=== PATIENT | female | born 1990 | race American Indian/Alaskan Native ===

== ENCOUNTER 2016-12-11 08:36 | Emergency (ER) | payer MEDICAID, OTHER ==
--- NOTE | 2016-12-11 09:01 | C.PDOC ---
History Of Present Illness <Arsen Wells - Last Filed: 12/11/16 08:59> <Prakash Ibarra - Last Filed: 12/11/16 13:11> This chart was written by Prakash Ibarra mistakenly within a chart that was begun by Dr. Arsen Wells who was not the provider for this patient. 26 y/o F p/w "knot" in epigastrium x 6 years, now with sharp pain and not going away since yesterday. Denies fever, nausea, vomiting, diarrhea. History of C section, no other abdominal surgeries. (Prakash Ibarra) <Arsen Wells - Last Filed: 12/11/16 08:59> <Prakash Ibarra - Last Filed: 12/11/16 13:11> Time Seen by Provider: 12/11/16 08:58 Chief Complaint (Nursing): Abdominal Pain Past Medical History - Social History Hx Tobacco Use: Yes Hx Alcohol Use: No Hx Substance Use: No - Immunization History Hx Influenza Vaccination: Yes (got sick last yr) <Arsen Wells - Last Filed: 12/11/16 08:59> Family History: States: No Known Family Hx <Prakash Ibarra - Last Filed: 12/11/16 13:11> Vital Signs: Last Vital Signs Temp 98.8 F 12/11/16 08:42 Pulse 79 12/11/16 11:14 Resp 16 12/11/16 11:14 BP 139/78 12/11/16 11:14 Pulse Ox 99 12/11/16 11:14 Review Of Systems Except As Marked, All Systems Reviewed And Found Negative. Constitutional: Negative for: Fever Cardiovascular: Negative for: Chest Pain <Prakash Ibarra - Last Filed: 12/11/16 13:11> Physical Exam <Arsen Wells - Last Filed: 12/11/16 08:59> <Prakash Ibarra - Last Filed: 12/11/16 13:11> - Physical Exam Additional Physical Exam Comments: Constitutional: No acute distress. Head: Normocephalic. Atraumatic. Neck: Supple. Cardiovascular: Regular rate. Radial pulse 2+ bilaterally. Chest: No tenderness. Respiratory: Clear to auscultation bilaterally. GI: Soft. Soft mass in epigastrium, irreducible. Nondistended. Back: No CVA tenderness. Musculoskeletal: No tenderness or swelling of extremities. Skin: No rash. Neurologic: Alert, no focal deficit. (Prakash Ibarra) ED Course And Treatment O2 Sat by Pulse Oximetry: 97 <Arsen Wells - Last Filed: 12/11/16 08:59> - Laboratory Results Result Diagrams: 12/11/16 10:08 12/11/16 10:08 <Prakash Ibarra - Last Filed: 12/11/16 13:11> Medical Decision Making <Arsen Wells - Last Filed: 12/11/16 08:59> <Prakash Ibarra - Last Filed: 12/11/16 13:11> Medical Decision Making: Check labs, urine, CT. FINDINGS: Lower thorax: No acute findings. ABDOMEN: Liver: Unremarkable. No mass. Gallbladder and bile ducts: Unremarkable. No calcified stones. No ductal dilation. Pancreas: Unremarkable. No mass. No ductal dilation. Spleen: Unremarkable. No splenomegaly. Adrenals: Unremarkable. No mass. Kidneys and ureters: Unremarkable. No solid mass. No hydronephrosis. Stomach and bowel: Unremarkable. No dilatation of small or large bowel. No mucosal thickening. Appendix: Normal. PELVIS: Bladder: Unremarkable. No mass. Reproductive: Unremarkable as visualized. ABDOMEN and PELVIS: Intraperitoneal space: Unremarkable. No free air. No significant fluid collection. Bones/joints: No acute fracture. Soft tissues: Small 1 cm midline fat containing ventral hernia at about mid abdomen. Vasculature: Unremarkable. No abdominal aortic aneurysm. Lymph nodes: No enlarged lymph nodes. IMPRESSION: Small fat-containing ventral hernia. Patient in no acute distress. Labs unremarkable. Advised f/u with General Surgery for treatment options, return to ER for worsening pain, fever, vomiting , constipation. (Prakash Ibarra) Disposition <Arsen Wells - Last Filed: 12/11/16 08:59> - Disposition Disposition Time: 13:01 <StaceyPrakash Chinchilla - Last Filed: 12/11/16 13:11> - Disposition Disposition: HOME/ ROUTINE Condition: STABLE Instructions: Ventral Hernia (ED) - Clinical Impression Clinical Impression: Ventral hernia
[2016-12-11] MEDS ORDERED: Sodium Chloride 0.9% 1,000 ML IV STA (09:41)
[2016-12-11 10:09] LABS: RBC URINE 26 /hpf (0-3); URINE BILIRUBIN NEGATIVE (NEGATIVE); URINE BLOOD 3+ (NEGATIVE); URINE COLOR Yellow (YELLOW); URINE GLUCOSE (UA) NORMAL (Normal); URINE KETONE NEGATIVE (NEGATIVE); URINE LEUKOCYTE ESTERASE NEG Leu/uL (Negative); URINE PROTEIN NEGATIVE (NEGATIVE); URINE UROBILINOGEN NORMAL mg/dL (0.2-1.0); WBC URINE 5 /hpf (0-5)
[2016-12-11 10:19] LABS: BASO # 0.1 K/uL (0.0-0.2); BASO % 0.9 % (0.0-2.0); EOS # 0.3 K/uL (0.0-0.7); EOS % 4.9 % (0.0-4.0); HEMATOCRIT 42.6 % (34.0-47.0); LYMPH % 29.7 % (20.0-40.0); MEAN CELL VOLUME 88.4 fL (81.0-99.0); MEAN CORPUSCULAR HEMOGLOBIN 29.2 pg (27.0-31.0); MEAN PLATELET VOLUME 11.7 fL (7.2-11.7); MONO # 0.3 K/uL (0.0-0.8); MONO % 4.3 % (0.0-10.0); NRBC % 0.1 % (0.0-2.0); WHITE BLOOD COUNT 6.8 K/uL (4.8-10.8)
[2016-12-11 10:44] LABS: CHLORIDE 105 mmol/L (98-107); POTASSIUM 3.8 mmol/L (3.6-5.2); SODIUM 140 mmol/L (132-148)
[2016-12-11 10:46] LABS: AST/SGOT 29 U/L (14-36); BILIRUBIN,TOTAL 0.5 mg/dL (0.2-1.3); CARBON DIOXIDE 24 mmol/L (22-30); GFR AFRICAN-AMERICAN > 60
[2016-12-11 10:47] LABS: ALB/GLOB RATIO 1.1 (1.0-2.1); ALKALINE PHOSPHATASE 58 U/L (38-126); ALT/SGPT 29 U/L (9-52); BLOOD UREA NITROGEN 13 mg/dL (7-17); CALCIUM 9.5 mg/dl (8.6-10.4); GLUCOSE,RANDOM 91 mg/dL (65-105); TOTAL PROTEIN 7.7 g/dL (6.3-8.3)
[2016-12-11] MEDS ORDERED: Iodixanol 320 MG/ML 100 ML BOTTLE IV ONE (11:07)
--- NOTE | 2016-12-11 13:01 | CT ---
EXAM: CT Abdomen and Pelvis With Intravenous Contrast CLINICAL HISTORY: 26 years old, female; Pain; Abdominal pain; Epigastric; Patient HX: Epigastric hernia, irreducible. Hcg neg TECHNIQUE: Axial computed tomography images of the abdomen and pelvis with intravenous contrast. This CT exam was performed using one or more of the following dose reduction techniques: automated exposure control, adjustment of the mA and/or kV according to patient size, and/or use of iterative reconstruction technique. Coronal and sagittal reformatted images were created and reviewed. CONTRAST: 100 mL of visipaque administered intravenously. EXAM DATE/TIME: 12/11/2016 9:41 AM COMPARISON: No relevant prior studies available. FINDINGS: Lower thorax: No acute findings. ABDOMEN: Liver: Unremarkable. No mass. Gallbladder and bile ducts: Unremarkable. No calcified stones. No ductal dilation. Pancreas: Unremarkable. No mass. No ductal dilation. Spleen: Unremarkable. No splenomegaly. Adrenals: Unremarkable. No mass. Kidneys and ureters: Unremarkable. No solid mass. No hydronephrosis. Stomach and bowel: Unremarkable. No dilatation of small or large bowel. No mucosal thickening. Appendix: Normal. PELVIS: Bladder: Unremarkable. No mass. Reproductive: Unremarkable as visualized. ABDOMEN and PELVIS: Intraperitoneal space: Unremarkable. No free air. No significant fluid collection. Bones/joints: No acute fracture. Soft tissues: Small 1 cm midline fat containing ventral hernia at about mid abdomen. Vasculature: Unremarkable. No abdominal aortic aneurysm. Lymph nodes: No enlarged lymph nodes. IMPRESSION: Small fat-containing ventral hernia.
[2016-12-11 13:31] VITALS: BP 108/74; PULSE 73; RESP 20; TEMP 98.6; O2SAT 98
== END 2016-12-11 13:30 | disposition home or self-care (01) ==
LOC: C.ER 08:36
DX: K43.9 Ventral hernia without obstruction or gangrene (principal)
CPT/HCPCS: 74177; 80053; 81001; 83690; 84703; 85025; 96361; 96374; 99285; J1885; J7040; Q9967

== ENCOUNTER 2017-10-15 17:42 | Emergency (ER) | payer MEDICAID, OTHER ==
[2017-10-15 17:49] VITALS: O2SAT 98
--- NOTE | 2017-10-15 18:44 | RAD ---
HISTORY: COUGH COMPARISON: No prior. TECHNIQUE: Chest PA and lateral FINDINGS: LUNGS: No active pulmonary disease. PLEURA: No significant pleural effusion identified. No pneumothorax apparent. CARDIOVASCULAR: Normal. OSSEOUS STRUCTURES: No significant abnormalities. VISUALIZED UPPER ABDOMEN: Normal. OTHER FINDINGS: None. IMPRESSION: No active disease.
[2017-10-15] MEDS ORDERED: Albuterol 0.083% Inhal Sol (2.5 mg/3 mL) UD INH STA (18:56)
[2017-10-15] MEDS ORDERED: Albuterol-Ipratrop 3 mg / 0.5 (3 ml) UD IH STA (18:56)
[2017-10-15] MEDS ORDERED: Albuterol 0.083% Inhal Sol (2.5 mg/3 mL) UD ONE (19:07)
[2017-10-15] MEDS ORDERED: Albuterol-Ipratrop 3 mg / 0.5 (3 ml) UD ONE (19:07)
--- NOTE | 2017-10-15 19:37 | C.PDOC ---
History Of Present Illness 31-year-old female, presents to the emergency department with complaints of shortness of breath and wheezing for the past four days. Patient attributes symptoms to cough and cold symptoms, stating her chest feels tight, but denies any pain or fever. Patient has a Hx of asthma, but was unable to have access to a pump at home. Time Seen by Provider: 10/15/17 18:29 Chief Complaint (Nursing): Cough, Cold, Congestion History Per: Patient History/Exam Limitations: no limitations Past Medical History Reviewed: Historical Data, Nursing Documentation, Vital Signs Vital Signs: Last Vital Signs Temp 98.2 F 10/15/17 21:17 Pulse 76 10/15/17 21:17 Resp 20 10/15/17 21:17 BP 100/63 10/15/17 21:17 Pulse Ox 98 10/15/17 21:17 Family History: States: No Known Family Hx - Social History Hx Tobacco Use: Yes Hx Alcohol Use: No Hx Substance Use: No - Immunization History Hx Influenza Vaccination: Yes (got sick last yr) Review Of Systems Constitutional: Negative for: Fever Cardiovascular: Negative for: Chest Pain Respiratory: Positive for: Cough, Shortness of Breath. Negative for: Sputum Physical Exam - Physical Exam Appears: Non-toxic, No Acute Distress Skin: Normal Color, Warm, Dry, No Rash Head: Normacephalic Eye(s): bilateral: PERRL Nose: Normal Oral Mucosa: Moist Lips: Normal Appearing Neck: Normal ROM Cardiovascular: Rhythm Regular, No Murmur Respiratory: No Decreased Breath Sounds, No Accessory Muscle Use, Wheezing Extremity: Normal ROM, No Deformity, No Swelling Neurological/Psych: Oriented x3, Normal Speech ED Course And Treatment O2 Sat by Pulse Oximetry: 98 (RA) Pulse Ox Interpretation: Normal - Other Rad CXR X-Ray: Viewed By Me, Read By Radiologist Interpretation: Accession No. : [id number]. Patient Name / ID : BRE ROMANO / [id number]. Exam Date : 10/15/2017 18:16:43 ( Approved ). Study Comment : Sex / Age : F / 27Y. Creator : Louis Jeffrey MD. Dictator : Louis Jeffrey MD. Replanting Machine Operator : Sorting Grapple Operator : Louis Jeffrey MD. Approver2 : Report Date : 10/15/2017 18:42:40. My Comment : . HISTORY: COUGH. COMPARISON: No prior. TECHNIQUE: Chest PA and lateral. FINDINGS: LUNGS: No active pulmonary disease. PLEURA: No significant pleural effusion identified. No pneumothorax apparent. CARDIOVASCULAR: Normal. OSSEOUS STRUCTURES: No significant abnormalities. VISUALIZED UPPER ABDOMEN: Normal. OTHER FINDINGS: None. IMPRESSION: No active disease. Progress Note: On re-evaluation patient feels better and is stable to be d/c home with PMD follow up. Medical Decision Making Medical Decision Making: Patient treated with Duoneb, Zithromax, and Prednisone CXR ordered and reviewed. Disposition - Disposition Referrals: Tony Elena MD [Staff Provider] - Disposition: HOME/ ROUTINE Disposition Time: 21:04 Condition: IMPROVED Additional Instructions: Follow up with PMD within 1-2 days. Return to ED if feel worse. Prescriptions: Brompheniramine/Pseudoephed/Dm [Bromfed Dm Cough 118 ml] 10 ml PO Q4 #300 ml predniSONE [predniSONE Tab] 2 tab PO DAILY #8 tab Albuterol Sulfate [Proventil Hfa] 0.09 mg IH .Q4-6 #1 aer Azithromycin [Zithromax] 250 mg PO DAILY #4 tab Instructions: Acute Bronchitis Forms: [facility] (Albanian) - Clinical Impression Clinical Impression: Bronchitis - Scribe Statement The provider has reviewed the documentation as recorded by the Scribe (Carey Ngo) All medical record entries made by the Scribe were at my direction and personally dictated by me. I have reviewed the chart and agree that the record accurately reflects my personal performance of the history, physical exam, medical decision making, and the department course for this patient. I have also personally directed, reviewed, and agree with the discharge instructions and disposition.
[2017-10-15 21:18] VITALS: BP 100/63; PULSE 76; RESP 20; TEMP 98.2
== END 2017-10-15 21:17 | disposition home or self-care (01) ==
LOC: C.ER 17:42
DX: J40 Bronchitis, not specified as acute or chronic (principal)